=== PATIENT | female | born 1985 | race Caucasian/White ===

== ENCOUNTER → 2017-11-28 | Outpatient (CLI) | payer OTHER | LOC: FIMAGING 11:11 | PROVIDERS: ATTEND Obstetrics & Gynecology | DX: E28.2 Polycystic ovarian syndrome (principal) ==

== ENCOUNTER 2018-11-13 20:09 | Inpatient (IN) | payer OTHER ==
[2018-11-13] MEDS ORDERED: ONDANSETRON DISINTEGRATING 4 MG TAB PO ONE (21:45)
[2018-11-13] MEDS ORDERED: LR 1,000 ML IV PRN (23:15)
[2018-11-13] MEDS ORDERED: LIDOCAINE 1% 300 MG/30 ML SDV SC PRN (23:15)
[2018-11-13] MEDS ORDERED: OXYTOCIN/RINGERS LACTATE 1,000 ML IV PRN (23:15)
[2018-11-13] MEDS ORDERED: EPSOM SALT 454 GM TP PRN (23:15)
[2018-11-13] MEDS ORDERED: IBUPROFEN 600 MG TAB PO PRN (23:15)
[2018-11-13] MEDS ORDERED: OLIVE OIL 118 ML BTL MISC PRN (23:15)
[2018-11-13] MEDS ORDERED: MISOPROSTOL 200 MCG TAB PR PRN (23:15)
[2018-11-13 23:40] LABS: PLATELET COUNT 145 10^3/uL (150-400)
--- NOTE | 2018-11-14 00:33 | PDGENHP ---
History and Physical - Chief Complaint labor contractions - History of Present Illness 31 G1 at 40w2d by LMP c/w 8 wk US, here with contractions. Onset of ctxns 1445 on 11/12/18, but has also been having many hours of contractions interrupting her sleep the past few nights. No VB, no LOF until after arrival here tonight - just before 2200. care since 8 weeks, transferred care to [facility] from [facility] [place] at 15 weeks. Preg c/b: Hypothyroidism - managed with levothroid 112mcg daily. Last TSH 09/03 was 1.73. labs: A pos Rub Imm GBS neg Ab scr neg RPR NR HBsAG neg UA neg pap neg GC/Chl neg AFP neg Panorama NIPT neg Varicella imm 28 wk 12.2/36.4 1 hr GTT 107 History Information - Allergies/Home Medication List Allergies/Adverse Reactions: No Known Allergies Allergy (Unverified 05/30/15 16:05) Home Medications: Iron 1 tab PO DAILY 11/13/18 [Last Taken 11/13/18] Levothyroxine [Synthroid 112 mcg (*)] 1 tab PO DAILY 11/13/18 [Last Taken ] Vit27&Calcium/Iron/FA [] 1 tab PO DAILY 11/13/18 [Last Taken ] I have personally reviewed and updated: family history, medical history, social history, surgical history Past Medical History: hypothyroidism. PCOS - Surgical History Additional surgical history: oral surgery and wisdom teeth under general anesthesia, no complications - Family History Positive for: myocardial infarction (MGM at 65), stroke (PGM, MGM with TIAs) Additional family history: FAther - manic depression, etoh abuse. PA and PUnc - Etoh abuse. MGM - breast ca. PGF - lung cancer, smoker - Social History Smoking Status: Never smoked Alcohol Use: None Drug Use: None Review of Systems Review of Systems: ROS: 10pt was reviewed & negative except for what was stated in HPI & below Physical Exam Physical Exam: FHR 130 reactive toco - q 2-5 min SVE at 2033 1-2 cm dilated. 2230 - no change but SROM noted at 2155 - then confirmed with + Amnisure. 0045 3 / 80/ -1 36.2 18 72 137/79 Constitutional: no apparent distress (when not clay), appears nourished Eyes: PERRL, anicteric sclera, EOMI Ears, Nose, Mouth, Throat: moist mucous membranes, hearing normal, ears appear normal Cardiovascular: regular rate and rhythym Respiratory: no respiratory distress, no rales or rhonchi, clear to auscultation Gastrointestinal: normoactive bowel sounds, other (term gravid, NT when not clay) Genitourinary: no bladder fullness Skin: warm, normal color Musculoskeletal: full muscle strength, no muscle tenderness Neurologic: AAOx3 Psychiatric: interacting appropriately, not anxious Lab Data & Imaging Review 11/13/18 23:30 WBC 17.65 10^3/uL (3.80-9.50) H 11/13/18 23:30 RBC 4.52 10^6/uL (4.18-5.33) 11/13/18 23:30 Hgb 13.0 g/dL (12.6-16.3) 11/13/18 23:30 Hct 37.8 % (38.0-47.0) L 11/13/18 23:30 MCV 83.6 fL (81.5-99.8) 11/13/18 23:30 MCH 28.8 pg (27.9-34.1) 11/13/18 23:30 MCHC 34.4 g/dL (32.4-36.7) 11/13/18 23:30 RDW 13.2 % (11.5-15.2) 11/13/18 23:30 Plt Count 145 10^3/uL (150-400) L 11/13/18 23:30 MPV 12.9 fL (8.7-11.7) H 11/13/18 23:30 Neut % (Auto) 91.5 % (39.3-74.2) H 11/13/18 23:30 Lymph % (Auto) 4.6 % (15.0-45.0) L 11/13/18 23:30 [place] % (Auto) 3.2 % (4.5-13.0) L 11/13/18 23:30 Eos % (Auto) 0.0 % (0.6-7.6) L 11/13/18 23:30 Baso % (Auto) 0.1 % (0.3-1.7) L 11/13/18 23:30 Nucleat RBC Rel Count 0.0 % (0.0-0.2) 11/13/18 23:30 Absolute Neuts (auto) 16.13 10^3/uL (1.70-6.50) H 11/13/18 23:30 Absolute Lymphs (auto) 0.82 10^3/uL (1.00-3.00) L 11/13/18 23:30 Absolute Monos (auto) 0.57 10^3/uL (0.30-0.80) 11/13/18 23:30 Absolute Eos (auto) 0.00 10^3/uL (0.03-0.40) L 11/13/18 23:30 Absolute Basos (auto) 0.02 10^3/uL (0.02-0.10) 11/13/18 23:30 Absolute Nucleated RBC 0.00 10^3/uL (0-0.01) 11/13/18 23:30 Immature Gran % 0.6 % (0.0-1.1) 11/13/18 23:30 Immature Gran # 0.11 10^3/uL (0.00-0.10) H 11/13/18 23:30 Membrane Rupture POSITIVE (NEGATIVE) H 11/13/18 22:53 Patient ABO/Rh A POSITIVE 11/13/18 23:30 Antibody Screen NEGATIVE 11/13/18 23:30 Assessment & Plan Assessment: A:31 G1 at 40w2d in early active labor. SROM at 2155 GBS neg. P: Expectant mgmt for now. OK for epidural. Dee Hennessy MD, FACOG
[2018-11-14] MEDS ORDERED: BUPIVACAINE 0.25% 10 ML SDV ONE (00:50)
[2018-11-14] MEDS ORDERED: fentaNYL 2MCG/ML/BUP 0.1% RTU 100 ML BAG EP ONE (00:50)
--- NOTE | 2018-11-14 00:50 | PDGENHP ---
History and Physical - Chief Complaint labor contractions - History of Present Illness History Information - Allergies/Home Medication List Allergies/Adverse Reactions: No Known Allergies Allergy (Unverified 05/30/15 16:05) Home Medications: Iron 1 tab PO DAILY 11/13/18 [Last Taken 11/13/18] Levothyroxine [Synthroid 112 mcg (*)] 1 tab PO DAILY 11/13/18 [Last Taken ] Vit27&Calcium/Iron/FA [] 1 tab PO DAILY 11/13/18 [Last Taken ] - Social History Smoking Status: Never smoked Review of Systems Review of Systems: Physical Exam Physical Exam: Lab Data & Imaging Review 11/13/18 23:30 WBC 17.65 10^3/uL (3.80-9.50) H 11/13/18 23:30 RBC 4.52 10^6/uL (4.18-5.33) 11/13/18 23:30 Hgb 13.0 g/dL (12.6-16.3) 11/13/18 23:30 Hct 37.8 % (38.0-47.0) L 11/13/18 23:30 MCV 83.6 fL (81.5-99.8) 11/13/18 23:30 MCH 28.8 pg (27.9-34.1) 11/13/18 23:30 MCHC 34.4 g/dL (32.4-36.7) 11/13/18 23:30 RDW 13.2 % (11.5-15.2) 11/13/18 23:30 Plt Count 145 10^3/uL (150-400) L 11/13/18 23:30 MPV 12.9 fL (8.7-11.7) H 11/13/18 23:30 Neut % (Auto) 91.5 % (39.3-74.2) H 11/13/18 23:30 Lymph % (Auto) 4.6 % (15.0-45.0) L 11/13/18 23:30 [place] % (Auto) 3.2 % (4.5-13.0) L 11/13/18 23:30 Eos % (Auto) 0.0 % (0.6-7.6) L 11/13/18 23:30 Baso % (Auto) 0.1 % (0.3-1.7) L 11/13/18 23:30 Nucleat RBC Rel Count 0.0 % (0.0-0.2) 11/13/18 23:30 Absolute Neuts (auto) 16.13 10^3/uL (1.70-6.50) H 11/13/18 23:30 Absolute Lymphs (auto) 0.82 10^3/uL (1.00-3.00) L 11/13/18 23:30 Absolute Monos (auto) 0.57 10^3/uL (0.30-0.80) 11/13/18 23:30 Absolute Eos (auto) 0.00 10^3/uL (0.03-0.40) L 11/13/18 23:30 Absolute Basos (auto) 0.02 10^3/uL (0.02-0.10) 11/13/18 23:30 Absolute Nucleated RBC 0.00 10^3/uL (0-0.01) 11/13/18 23:30 Immature Gran % 0.6 % (0.0-1.1) 11/13/18 23:30 Immature Gran # 0.11 10^3/uL (0.00-0.10) H 11/13/18 23:30 Membrane Rupture POSITIVE (NEGATIVE) H 11/13/18 22:53 Patient ABO/Rh A POSITIVE 11/13/18 23:30 Antibody Screen NEGATIVE 11/13/18 23:30
--- NOTE | 2018-11-14 00:57 | PREANESOB ---
Obstetric Pre-Anesthesia Info - General Info : 1 Para: 0 JEFFREY: 11/12/18 Gestational Age: 40 week(s) and 1 day(s) - Labor Status Indications for Labor Analgesia: Pain Control Labor Epidural: Proposed Anesthesia Allergies/Adverse Reactions: Allergy/AdvReac Type Severity Reaction Status Date / Time No Known Allergies Allergy Unverified 05/30/15 16:05 Home Medications: Medication Instructions Recorded Iron 1 tab PO DAILY 11/13/18 Levothyroxine [Synthroid 112 mcg 1 tab PO DAILY 11/13/18 (*)] Vit27&Calcium/Iron/FA 1 tab PO DAILY 11/13/18 [] Visit Medications: Generic Name Dose Route Start Last Admin Trade Name Freq PRN Reason Stop Dose Admin Lactated Ringer's 1,000 mls @ 0 mls/hr 11/13/18 23:15 11/14/18 00:50 Lr IV 11/14/18 23:14 1,000 mls PRN PRN Administration SEE PROTOCOL CONDITIONS Protocol Per Protocol Oxytocin/Lactated Ringer's 1,000 mls @ 125 mls/hr 11/13/18 23:15 Pitocin 20 Units/Lr (Premix) IV PRN PRN Post bleeding Ibuprofen 600 mg 11/13/18 23:15 Motrin PO ONCE PRN post , pain Lidocaine HCl 300 mg 11/13/18 23:15 Lidocaine Hcl 1% SC 05/12/19 23:14 ONCE PRN episiotomy Magnesium Sulfate 454 gm 11/13/18 23:15 Epsom Salt TP 05/12/19 23:14 Q1H PRN perineal discomfort Misoprostol 800 - 1,000 mcg 11/13/18 23:15 Cytotec VT ONCE PRN Vaginal Atony/Bleeding [place] Oil 118 ml 11/13/18 23:15 Sweet Oil MISC 05/12/19 23:14 ONCE PRN perineal massage Discontinued Medications Generic Name Dose Route Start Last Admin Trade Name Freq PRN Reason Stop Dose Admin Bupivacaine HCl Confirm 11/14/18 00:50 Sensorcaine 0.25% Sdv Administered 11/14/18 00:51 Dose 10 ml .ROUTE .STK-MED ONE Fentanyl/Bupivacaine HCl Confirm 11/14/18 00:50 Fentanyl/Bupivacaine/Ns 2 Mcg/Ml 0.1% (Premix Administered 11/14/18 00:51 Dose 100 ml EP .STK-MED ONE Ondansetron HCl 4 mg 11/13/18 21:45 11/13/18 21:39 Zofran Odt PO 11/13/18 21:46 4 mg ONCE ONE Administration - Anesthesia History Response to Local Anesthetics: Normal Anesthesia & Operative History: No Prior Problems Family Anesthesia History: Not Applicable - Vital Signs Height/Weight (Nursing): Height 165.1 cm Weight 80.739 kg - Focused Exam Neck exam: FROM Mallampati Score: Class 1 Mouth exam: normal dental/mouth exam Pulmonary: no respiratory distress Cardiovascular: regular rate and rhythym Labs: 11/13/18 23:30 Patient ABO/Rh A POSITIVE 11/13/18 23:30 - Plan Anesthetic Plan: RADHIKA Consent Signed and on Chart: Yes Patient/Guardian Understands and Agrees to Plan: Yes
[2018-11-14] MEDS ORDERED: PHENYLEPHRINE HCL 100 MCG/ML SYR IVP PRN (01:22)
[2018-11-14] MEDS ORDERED: ONDANSETRON 4 MG/2 ML VIAL IVP PRN (01:22)
[2018-11-14] MEDS ORDERED: NALOXONE HCL 0.4 MG/ML INJ IVP PRN (01:22)
--- NOTE | 2018-11-14 01:24 | POSTANESTH ---
Post Anesthetic Evaluation Cardiovascular Status: Normal, Stable, Similar to Pre-Op Cond Respiratory Status: Normal, Stable, Similar to Pre-op Cond. Level of Consciousness/Mental Status: Can Participate in Eval, Alert and Oriented Pain Control: Adequate, Prn Tx Ordered Nausea/Vomiting Control: Adequate, Prn Tx Ordered Complications Possibly Related to Anesthesia: None Noted Notes: Post procedure no apparent ill effects.
[2018-11-14] MEDS ORDERED: LR 500 ML IV SCH (01:30)
[2018-11-14] MEDS ORDERED: fentaNYL 2MCG/ML/BUP 0.1% RTU 100 ML EP SCH (01:30)
[2018-11-14] MEDS ORDERED: LR 500 ML IV PRN (02:20)
--- NOTE | 2018-11-14 02:24 | OBPROG ---
Labor Progress Note Assessment/Plan: Assessment: 31 G1 - in labor, now comfortable with epidural. GBS neg. Plan: Expectant mgmt for now. If no change in next 2 hours, will augment with pitocin. Dee Hennessy MD, FACOG 11/14/18 02:23 Subjective/Intrapartum Course: Pt comfortable after epidural. 11/14/18 02:26 Objective: 11/13/18 23:30 Patient ABO/Rh A POSITIVE 11/13/18 23:30 - Contraction Pattern Assessment Current Contraction Pattern: Regular - FHR Assessment Angel FHR (bpm): 130 FHR Pattern Variability: Moderate FHR Category: 1 Oxytocin Orders Assessment - Pre-Induction/Augmentation Assessment Gestational Age: 40 week(s) and 1 day(s) ICD10 Worksheet Patient Problems: Problems Problem Status Onset Supervision of normal in third trimester Acute Supervision of normal in third trimester Acute - ICD10 Problem Qualifiers (1) Supervision of normal in third trimester Qualifiers: Normal : normal first Qualified Code(s): Z34.03 - Encounter for supervision of normal first , third trimester (2) Supervision of normal in third trimester
[2018-11-14] MEDS: CALCIUM CARBONATE 500 MG CHEWABLE TAB PO PRN ×2 (02:30→08:06)
[2018-11-14] MEDS ORDERED: OXYTOCIN/RINGERS LACTATE 500 ML IV SCH (02:30)
[2018-11-14] MEDS ORDERED: OLIVE OIL 118 ML BTL MISC ONE (05:46)
[2018-11-14] MEDS ORDERED: AMMONIA AROMATIC 1 EACH AMP IH ONE (05:46)
[2018-11-14] MEDS ORDERED: LIDOCAINE 1% 300 MG/30 ML SDV ONE (05:46)
[2018-11-14] MEDS ORDERED: TERBUTALINE SULFATE 1 MG/ML VIAL ONE (05:47)
[2018-11-14] MEDS ORDERED: MISOPROSTOL 200 MCG TAB ONE (05:47)
[2018-11-14] MEDS ORDERED: OXYTOCIN 10 UNIT/ML VIAL ONE (05:47)
--- NOTE | 2018-11-14 07:03 | OBPROG ---
Labor Progress Note Assessment/Plan: Assessment: 31 G1 - in labor, now comfortable with epidural. GBS neg. Plan: Expectant mgmt for now. If no change in next 2 hours, will augment with pitocin. Dee Hennessy MD, FACOG 11/14/18 02:23 31 G1 in labor, great progress. Anticipate pushing to start soon and vaginal delivery. Dee Hennessy MD, FACOG 11/14/18 06:59 Subjective/Intrapartum Course: Pt comfortable after epidural. 11/14/18 02:26 Pt doing well. Was able to get some sleep and is quite comfortable, though feeling more pressure. 11/14/18 07:00 Objective: 11/13/18 23:30 Patient ABO/Rh A POSITIVE 11/13/18 23:30 Sitting up in beach chair position with foot of bed dropped. NAD. - SVE Dilation (cm): 9 Effacement (%): 100 Station: -2 Membranes: SROM Amniotic Fluid Color: Clear - Contraction Pattern Assessment Current Contraction Pattern: Regular - FHR Assessment Angel FHR (bpm): 130 (occasional early decel) FHR Pattern Variability: Moderate FHR Category: 1 Oxytocin Orders Assessment - Pre-Induction/Augmentation Assessment Gestational Age: 40 week(s) and 1 day(s) ICD10 Worksheet Patient Problems: Problems Problem Status Onset Supervision of normal in third trimester Acute Supervision of normal in third trimester Acute - ICD10 Problem Qualifiers (1) Supervision of normal in third trimester Qualifiers: Normal : normal first Qualified Code(s): Z34.03 - Encounter for supervision of normal first , third trimester (2) Supervision of normal in third trimester
--- NOTE | 2018-11-14 07:56 | OBPROG ---
Labor Progress Note Assessment/Plan: Assessment: IUP at 40 + wks active labor, now complete on pit with RADHIKA Plan: begin pushing 11/14/18 07:52 Subjective/Intrapartum Course: Pt comfortable after epidural. 11/14/18 02:26 Pt doing well. Was able to get some sleep and is quite comfortable, though feeling more pressure. 11/14/18 07:00 11/14/18 07:56 has feeling of pressure and occas would want to push. on exam complete and +1 station. no caput. will begin pushing Objective: 11/13/18 23:30 Patient ABO/Rh A POSITIVE 11/13/18 23:30 - SVE Dilation (cm): 10 Effacement (%): 100 Station: +1 Membranes: SROM Amniotic Fluid Color: Clear Dilation Complete Date: 11/14/18 Dilation Complete Time: 07:00 - Contraction Pattern Assessment Current Contraction Pattern: Regular - FHR Assessment Angel FHR (bpm): 120 FHR Pattern Variability: Moderate FHR Category: 1 Oxytocin Orders Assessment - Pre-Induction/Augmentation Assessment Gestational Age: 40 week(s) and 1 day(s) ICD10 Worksheet Patient Problems: Problems Problem Status Onset Supervision of normal in third trimester Acute Supervision of normal in third trimester Acute
[2018-11-14] MEDS ORDERED: CALCIUM CARBONATE 500 MG CHEWABLE TAB PO ONE (08:15)
[2018-11-14] MEDS ORDERED: ACETAMINOPHEN 325 MG TAB PO PRN (10:18)
--- NOTE | 2018-11-14 10:26 | OBDEL ---
Info Type: Vaginal Presentation at Delivery: Vertex L&D Analgesia/Anesthesia Type: Epidural GBS+: No Intrapartum Medications: Generic Name Dose Route Start Last Admin Trade Name Freq PRN Reason Stop Dose Admin Calcium Carbonate 500 mg 11/14/18 02:08 11/14/18 08:06 Tums PO 05/13/19 02:07 500 mg TID PRN Administration Indigestion Lactated Ringer's 1,000 mls @ 0 mls/hr 11/13/18 23:15 11/14/18 00:50 Lr IV 11/14/18 23:14 1,000 mls PRN PRN Administration SEE PROTOCOL CONDITIONS Protocol Per Protocol Lactated Ringer's 500 mls @ 0 mls/hr 11/14/18 01:30 11/14/18 03:59 Lr IV 05/13/19 01:29 500 mls CONT JOAN Administration As Directed Oxytocin/Lactated Ringer's 500 mls @ 0 mls/hr 11/14/18 02:30 11/14/18 03:59 Pitocin 30 Units/Lr (Premix) IV 05/13/19 02:29 500 mls CONT JOAN Administration Protocol Per Protocol Discontinued Medications Generic Name Dose Route Start Last Admin Trade Name Freq PRN Reason Stop Dose Admin Ondansetron HCl 4 mg 11/13/18 21:45 11/13/18 21:39 Zofran Odt PO 11/13/18 21:46 4 mg ONCE ONE Administration - Hospital Course Intrapartum: Pt comfortable after epidural. 11/14/18 02:26 Pt doing well. Was able to get some sleep and is quite comfortable, though feeling more pressure. 11/14/18 07:00 11/14/18 07:56 has feeling of pressure and occas would want to push. on exam complete and +1 station. no caput. will begin pushing Indications for Delivery: Spontaneous Labor, SROM Vaginal Delivery - Delivery Provider Delivery Physician/CNM: Ligia Clements - Labor and Delivery Onset of Contractions Date: 11/13/18 Onset of Contractions Time: 14:45 Onset of Contractions Type: Augmented Rupture of Membranes Date: 11/13/18 Rupture of Membranes Time: 21:55 Rupture of Membranes Type: Spontaneous Amniotic Fluid Color: Clear Dilation Complete Date: 11/14/18 Dilation Complete Time: 07:44 Placenta Delivery Date: 11/14/18 Placenta Delivery Time: 09:47 Total Hours of Labor: 19 Laceration: 1st Degree (midline, and first degree right periurethral) Repair: Other (Specify) (none needed) Vaginal Sponge Count Correct: Yes Vaginal Needle Count Correct: Yes Vaginal Sweep Performed: Yes EBL: 300 Delivery Events: None - Medications Labor Augmentation/Induction Methods Used: Pitocin Labor Augmentation/Induction Indication: Inadequate Contraction Frequency Data JEFFREY: 11/12/18 Gestational Age: 40 week(s) and 2 day(s) Angel Delivery Date: 11/14/18 Delivery Time: 09:38 Sex of Infant: Female (Jessica) Score (1 Min): 8 Score (5 Min): 9 ICD10 Worksheet Patient Problems: Problems Problem Status Onset (spontaneous vaginal delivery) Acute
[2018-11-14] MEDS: IBUPROFEN 600 MG TAB PO PRN ×2 (15:11→21:38)
[2018-11-15] MEDS: IBUPROFEN 600 MG TAB PO PRN (06:11)
[2018-11-15] MEDS: LEVOTHYROXINE 112 MCG TAB PO SCH (06:12)
--- NOTE | 2018-11-15 10:13 | OBPP ---
Progress Note Assessment/Plan: Assessment: ppd# 1 s/p uncomplicated post course breast feeding hypothyroid abdominal binder Plan: 11/15/18 10:11 Subjective/ Course: 11/15/18 10:11 patient is doing well. mildly uncomfortable abdomen. discussed abdominal binder. patient would like to get. normal lochia. denies headache and changs in vision. breast feeding is going well. Objective: 11/15/18 06:15 Patient ABO/Rh A POSITIVE 11/13/18 23:30 Temp Pulse Resp BP Pulse Ox 36.1 C 84 18 113/76 94 11/15/18 09:05 11/15/18 09:05 11/15/18 09:05 11/15/18 09:05 11/15/18 09:05 Physical Exam - Physical Exam Neck: non-tender, full range of motion Respiratory: chest non-tender, lungs clear, normal breath sounds Cardiac/Chest: normal peripheral pulses, regular rate, rhythm Abdomen: normal bowel sounds, non-tender, other (fundus firm and non tender) Extremities: normal range of motion, non-tender, normal inspection, normal capillary refill Skin: normal color, warm/dry Neuro/Psych: no motor/sensory deficits, alert, normal mood/affect, oriented x 3
--- NOTE | 2018-11-15 11:19 | POSTANESTH ---
Post Anesthetic Evaluation Cardiovascular Status: Normal, Stable Respiratory Status: Normal, Stable Level of Consciousness/Mental Status: Can Participate in Eval, Alert and Oriented Pain Control: Adequate, Prn Tx Ordered Nausea/Vomiting Control: Adequate, Prn Tx Ordered Complications Possibly Related to Anesthesia: None Noted (Placenta DElivery Time and Epidural End Time 11/14/18 @ 09:47)
[2018-11-16] MEDS: LEVOTHYROXINE 112 MCG TAB PO SCH (05:33)
[2018-11-16] MEDS: IBUPROFEN 600 MG TAB PO PRN (05:37)
--- NOTE | 2018-11-16 08:27 | OBPP ---
Progress Note Assessment/Plan: Assessment: 31 G1 - in labor, now comfortable with epidural. GBS neg. Plan: Expectant mgmt for now. If no change in next 2 hours, will augment with pitocin. Dee Hennessy MD, FACOG 11/14/18 02:23 31 G1 in labor, great progress. Anticipate pushing to start soon and vaginal delivery. Dee Hennessy MD, FACOG 11/14/18 06:59 11/16/18 08:24 A/P: 31 PPD#2 s/p , doing well. DC home, std vag deliv instructions reviewed including ssx pp depression. See dc summary. Dee Hennessy MD, FACOG Subjective/ Course: 11/15/18 10:11 patient is doing well. mildly uncomfortable abdomen. discussed abdominal binder. patient would like to get. normal lochia. denies headache and changs in vision. breast feeding is going well. 11/16/18 08:25 Doing well. going well. Mod lochia. Ambulating and voiding without difficulty. Objective: 11/15/18 06:15 Patient ABO/Rh A POSITIVE 11/13/18 23:30 Temp Pulse Resp BP Pulse Ox 36.8 C 62 12 111/71 94 11/16/18 05:39 11/16/18 05:39 11/16/18 05:39 11/16/18 05:39 11/16/18 05:39 gen - pleasant, NAD CV - RRR chest - CTAB abd - soft, + BS, NT ext - trace edema, no calf tenderness Uterine Position/Fundal Height: Umbilicus -2 Uterine Tone: Firm
[2018-11-16 08:32] VITALS: BP 114/77
--- NOTE | 2018-11-16 09:13 | OBGCSDC ---
General Delivery Information - General Info : 1 Para: 1 Abortions: 0 Type: Vaginal L&D Analgesia/Anesthesia Type: Epidural Admission Date: 11/14/18 Labs: Patient ABO/Rh A POSITIVE 11/13/18 23:30 Hct 31.4 % (38.0-47.0) L 11/15/18 06:15 - Hospital Course Intrapartum: Pt comfortable after epidural. 11/14/18 02:26 Pt doing well. Was able to get some sleep and is quite comfortable, though feeling more pressure. 11/14/18 07:00 11/14/18 07:56 has feeling of pressure and occas would want to push. on exam complete and +1 station. no caput. will begin pushing : 11/15/18 10:11 patient is doing well. mildly uncomfortable abdomen. discussed abdominal binder. patient would like to get. normal lochia. denies headache and changs in vision. breast feeding is going well. 11/16/18 08:25 Doing well. going well. Mod lochia. Ambulating and voiding without difficulty. Vaginal - Delivery Provider Delivery Physician/CNM: Ligia Clements - Diagnosis Labor: Augmented Rupture of Membranes Type: Spontaneous Amniotic Fluid Color: Clear Laceration: 1st Degree (midline, and first degree right periurethral) Repair: Other (Specify) (none needed) Delivery Events: None - Delivery EBL: 300 [place] Data JEFFREY: 11/12/18 Gestational Age: 40 week(s) and 4 day(s) Angel Delivery Date: 11/14/18 Delivery Time: 09:38 Sex of : Female Weight (gm): 3454 kg Score (1 Min): 8 Score (5 Min): 9 Discharge Information - Discharge Information Instruction/Follow Up: See Instruction Sheet, Two Weeks, Six Weeks
== END 2018-11-16 12:30 | disposition home or self-care (01) | DRG 807 ==
LOC: FLD 20:09 → OBSVTOIN 11-14 09:30 → FOB 11-14 12:05
PROVIDERS: ADMIT Hospitalist; ATTEND Obstetrics & Gynecology
PROC: 0HQ9XZZ Repair Perineum Skin, External Approach (ICD-10-PCS; principal; 2018-11-14)
PROC: 10E0XZZ Delivery of Products of Conception, External Approach (ICD-10-PCS; principal; 2018-11-14)
DX: O70.0 First degree perineal laceration during delivery (principal); O99.283 Endocrine, nutritional and metabolic diseases complicating pregnancy, third trimester; E03.9 Hypothyroidism, unspecified; Z3A.40 40 weeks gestation of pregnancy; Z37.0 Single live birth
CPT/HCPCS: G0378; J2590; J3105

== ENCOUNTER → 2018-11-18 | Outpatient (CLI) | payer OTHER | LOC: FLACT 11:04 | PROVIDERS: ATTEND Obstetrics & Gynecology | DX: Z39.1 Encounter for care and examination of lactating mother (principal) | CPT/HCPCS: G0463 ==